=== PATIENT | female | born 1935 | race Caucasian/White ===

== ENCOUNTER 2016-07-30 08:10 | Emergency (ER) | payer MEDICARE, OTHER | END 2016-07-30 09:57 | disposition home or self-care (01) | LOC: D.ER 08:10 | DX: S20.219A Contusion of unspecified front wall of thorax, initial encounter (principal); V49.40XA Driver injured in collision with unspecified motor vehicles in traffic accident, initial encounter; Y93.89 Activity, other specified; Y92.410 Unspecified street and highway as the place of occurrence of the external cause ==